=== PATIENT | female | born 1985 | race African-American/Black ===

== ENCOUNTER 2018-04-20 08:51 | Outpatient (CLI) | payer OTHER, MEDICAID ==
[~2018-04-20 08:51] MED LIST: FERRIC CARBOXYMALTOSE 750 MG in NORMAL SALINE 250 ML IV PRN; NORMAL SALINE 250 ML IV PRN
[2018-04-20 10:20] VITALS: BP 130/79
== END 2018-04-20 10:25 | disposition home or self-care (01) ==
LOC: II 08:51
PROVIDERS: ATTEND Internal Medicine Hematology & Oncology
PROC: 3E033GC Introduction of Other Therapeutic Substance into Peripheral Vein, Percutaneous Approach (ICD-10-PCS; principal; 2018-04-20)
DX: D50.9 Iron deficiency anemia, unspecified (principal); K90.9 Intestinal malabsorption, unspecified
CPT/HCPCS: 96365; J7050; J1439

== ENCOUNTER 2018-04-27 08:56 | Outpatient (CLI) | payer OTHER, MEDICAID ==
[~2018-04-27 08:56] MED LIST changes: +CYANOCOBALAMIN (VITAMIN B-12) INJ 1000 MCG/1 ML VIAL IM PRN
[2018-04-27 09:55] VITALS: BP 109/58
== END 2018-04-27 10:33 | disposition home or self-care (01) ==
LOC: II 08:56 → 5TH 08:58 → II 10:33
PROVIDERS: ATTEND Internal Medicine Hematology & Oncology
PROC: 3E033GC Introduction of Other Therapeutic Substance into Peripheral Vein, Percutaneous Approach (ICD-10-PCS; principal; 2018-04-27)
PROC: 3E023GC Introduction of Other Therapeutic Substance into Muscle, Percutaneous Approach (ICD-10-PCS; 2018-04-27)
DX: D50.9 Iron deficiency anemia, unspecified (principal); K90.9 Intestinal malabsorption, unspecified
CPT/HCPCS: 96367; 96372; J3420; J7050; J1439; 96374

== ENCOUNTER 2018-07-09 05:44 | Outpatient (CLI) | payer OTHER, MEDICAID ==
[2018-07-09 06:25] LABS: APPEARANCE,URINE SLIGHTLY-CLOUDY; BILIRUBIN,URINE NEGATIVE (NEGATIVE); COLOR,URINE YELLOW; GLUCOSE, URINE NEGATIVE (NEGATIVE); KETONES,URINE NEGATIVE (NEGATIVE); LEUKOCYTE ESTERASE,URINE NEGATIVE (NEGATIVE); NITRITE,URINE NEGATIVE (NEGATIVE); PROTEIN,URINE NEGATIVE (NEGATIVE); URINE SPECIFIC GRAVITY 1.011; UROBILINOGEN,URINE NEGATIVE mg/dL (<2.0)
[2018-07-09 07:10] LABS: URINE AMPHETAMINES SCREEN NEGATIVE; URINE BARBITURATES SCREEN NEGATIVE; URINE BENZODIAZEPINES SCREEN NEGATIVE; URINE COCAINE SCREEN NEGATIVE; URINE MARIJUANA (THC) SCREEN NEGATIVE; URINE METHADONE SCREEN NEGATIVE; URINE PHENCYCLIDINE SCREEN NEGATIVE
[2018-07-09] MEDS ORDERED: RINGERS SOLUTION,LACTATED 1,000 ML IV PRN (20:44)
[2018-07-09] MEDS ORDERED: MAG HYDROX/AL HYDROX/SIMETH SUSP 30 ML UDCUP PO ONE (21:00)
== END 2018-07-09 07:25 | disposition home or self-care (01) ==
LOC: LC 05:44
PROVIDERS: ATTEND Obstetrics & Gynecology
PROC: 4A1HXCZ Monitoring of Products of Conception, Cardiac Rate, External Approach (ICD-10-PCS; principal; 2018-07-09)
DX: O47.1 False labor at or after 37 completed weeks of gestation (principal); Z3A.38 38 weeks gestation of pregnancy
CPT/HCPCS: 59025; 80307; 81005

== ENCOUNTER 2018-07-09 14:34 | Inpatient (IN) | payer OTHER, MEDICAID ==
[2018-07-09 15:09] LABS: APPEARANCE,URINE CLEAR; BILIRUBIN,URINE NEGATIVE (NEGATIVE); COLOR,URINE YELLOW; GLUCOSE, URINE NEGATIVE (NEGATIVE); KETONES,URINE NEGATIVE (NEGATIVE); LEUKOCYTE ESTERASE,URINE NEGATIVE (NEGATIVE); NITRITE,URINE NEGATIVE (NEGATIVE); PROTEIN,URINE NEGATIVE (NEGATIVE); URINE SPECIFIC GRAVITY 1.009; UROBILINOGEN,URINE NEGATIVE mg/dL (<2.0)
[2018-07-09 15:25] LABS: URINE AMPHETAMINES SCREEN NEGATIVE; URINE BARBITURATES SCREEN NEGATIVE; URINE BENZODIAZEPINES SCREEN NEGATIVE; URINE COCAINE SCREEN NEGATIVE; URINE MARIJUANA (THC) SCREEN NEGATIVE; URINE METHADONE SCREEN NEGATIVE; URINE PHENCYCLIDINE SCREEN NEGATIVE
[2018-07-09] MEDS ORDERED: RINGERS SOLUTION,LACTATED 1,000 ML IV PRN ×2 (16:28→20:50)
[2018-07-09] MEDS ORDERED: RINGERS SOLUTION,LACTATED 1,000 ML IV ONE (16:28)
[2018-07-09 17:01] LABS: ABSOLUTE EOSINOPHILS # (AUTO) 0.1 10^3/uL (0.0-0.6); ABSOLUTE LYMPHOCYTES (AUTO) 2.1 10^3/uL (0.5-4.7); ABSOLUTE MONOCYTES (AUTO) 0.7 10^3/uL (0.1-1.4); ABSOLUTE NEUT (AUTO) 5.6 10^3/uL (1.7-8.2); BASOPHILS % (AUTO) 0.4 % (0-2); EOSINOPHILS % (AUTO) 1.5 % (0-6); HEMOGLOBIN 10.8 g/dL (12.0-15.5); LYMPHOCYTES % (AUTO) 24.6 % (13-45); MEAN CORPUSCULAR HEMOGLOBIN 24.7 pg (27.0-33.4); MEAN CORPUSCULAR HGB CONC 31.9 g/dL (32.0-36.0); MEAN CORPUSCULAR VOLUME 78 fl (80-97); MONOCYTES % (AUTO) 8.6 % (3-13); PLATELET COUNT 228 10^3/uL (150-450); RED BLOOD COUNT 4.39 10^6/uL (3.72-5.28); SEGMENTED NEUTROPHILS % (AUTO) 64.9 % (42-78); TOTAL CELLS COUNTED % (AUTO) 100 %; WHITE BLOOD COUNT 8.6 10^3/uL (4.0-10.5)
[2018-07-09] MEDS ORDERED: OXYTOCIN 10 UNIT/ML VIAL ONE (19:11)
[2018-07-09] MEDS ORDERED: MISOPROSTOL 0.2 MG TABLET ONE (19:11)
[2018-07-09] MEDS ORDERED: PHENYLEPHRINE HCL INJ/PF 10 MG/1 ML SDV ONE (19:11)
[2018-07-09] MEDS ORDERED: EPHEDRINE SULFATE INJ 50 MG/1 ML AMPULE ONE (19:12)
[2018-07-09] MEDS ORDERED: LIDOCAINE 1% INJ-PF (10 MG/ML) 30 ML SDV ONE (19:12)
[2018-07-09] MEDS ORDERED: FENTANYL CITRATE INJ/PF 100 MCG/2 ML AMPUL ONE (19:12)
[2018-07-09] MEDS ORDERED: OXYTOCIN/NORMAL SALINE 20 UNIT/1,000 ML RTUINJ ONE (19:12)
[2018-07-09] MEDS ORDERED: BUPIVACAINE HCL 0.5 % INJ/PF 30 ML SDV ONE (19:15)
[2018-07-09] MEDS ORDERED: FENTANYL/BUPIVACAINE/NS/PF 300 MCG/150 ML RTUINJ EPI ONE (19:42)
--- NOTE | 2018-07-09 19:50 | Admission Physical ---
Datetime Report Generated by CPN: 07/09/2018 19:50 CURRENT ADMISSION Chief Complaint: Uterine Contractions Indication for Induction: Indicated by Testing Indication for Induction- Other: several decels noted with an early appearance. decels resolved with hydration but felt prudent to admit for delivery in light of questionable status Admit Impression : Term, Intrauterine ; Induction of Labor Admit Plan: Admit to Unit; Initiate Labor Induction Protocol ALLERGIES Medication Allergies: No Medication Allergies: No Known Allergies (07/09/2018) Latex: No Latex Allergies Food Allergies: denies Environmental Allergies: denies OBSTETRICAL HISTORY EDC: 07/17/2018 00:00 : 4 Para: 2 Term: 2 : 0 SAB: 1 IAB: 0 Livin Gestational Diabetes: No Rh Sensitization: No Incompetent Cervix: No DEMI: No Infertility: No ART Treatment: Yes Uterine Anomaly: No IUGR: No Hx Previous C/S: No Macrosomia: No Hx Loss/Stillborn: No PIH: No Hx : No Placenta Previa/Abruption: No Depression/PP Depression: No PTL/PROM: No Post Hemorrhage: No Current Procedures: Ultrasound; NST Obstetrical History Comments: g1-2005-36 to 37 weeks, , male, 5lb 4oz, 12 hours labor g2-2008, sab at 9 weeks g3-2011-40+4 weeks, , female, 7lb 14 oz g4-cuurrent , anemia requiring iron infusion SEE RECORDS Alcohol: No Marijuana : No Cocaine: No Other Illicit Drugs: No Cigarettes: Never Smoker. 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 Heart Disease: No Hosp/Surgery: No Autoimmune Disorder: No Anesthetic Complications: No Kidney Disease: No Abnormal Pap Smear: No Neuro/Epilepsy: No Psychiatric Disorders: No Other Medical Diseases: Yes Hepatitis/Liver Disease: No Significant Family History: No Varicosities/Phlebitis: No Trauma/Violence : No Thyroid Dysfunction: No Medical History Comments: anemia on iron infusions, obesity, childbirth x 2, clomid during second INFECTIOUS HISTORY Gonorrhea: No Genital Herpes: No Chlamydia: No Tuberculosis: No Syphilis: No Hepatitis: No HIV/AIDS Exposure: No Rash or Viral Illness: No HPV: No PHYSICAL EXAM General: Normal HEENT: Normal Neurologic: Normal Thyroid: Normal Heart: Normal Lungs: Normal Breast: Normal Back: Normal Abdomen: Normal Genitourinary Exam: Normal Extremities: Normal DTRs: Normal Pelvic Type: Adequate Vital Signs: Reviewed; Within Normal Limits VAGINAL EXAM Dilatation: 6 Effacement: 100 Station: -1 MEMBRANES Pooling: Negative Membranes: Intact FETUS A EGA: 38.6 Monitoring: External US FHR- Baseline: 150 Variability: Moderate 6-25bpm Accelerations: 15X15 Decelerations: None FHR Category: Category I Estimated Weight (gm): 3500 Presentation: Vertex PLANS FOR LABOR AND DELIVERY Labor and Delivery: None Pain Management: Epidural Feeding Preference: Breast Benefit of Breast Feed Discussed: Yes Circumcision: N/A INFORMED CONSENT Signature: with User ID: [email or web address]
[2018-07-09] MEDS ORDERED: MAG HYDROX/AL HYDROX/SIMETH SUSP 30 ML UDCUP ONE (20:32)
[2018-07-09] MEDS ORDERED: MAG HYDROX/AL HYDROX/SIMETH SUSP 30 ML UDCUP PO ONE (22:05)
[2018-07-09] MEDS ORDERED: ZOLPIDEM TARTRATE 5 MG TABLET PO PRN (22:33)
[2018-07-09] MEDS ORDERED: DIBUCAINE 1% OINTMENT 28 GM TP PRN (22:33)
[2018-07-09] MEDS ORDERED: PROMETHAZINE HCL 25 MG TABLET PO PRN (22:33)
[2018-07-09] MEDS ORDERED: OXYTOCIN/NORMAL SALINE 20 UNIT/1,000 ML RTUINJ IV PRN (22:33)
[2018-07-09] MEDS ORDERED: NA PHOS,M-B/NA PHOS,DI-BA (ADULT) 133 ML ENEMA PR PRN (22:33)
[2018-07-09] MEDS ORDERED: DIPHENHYDRAMINE HCL 25 MG CAPSULE PO PRN (22:33)
[2018-07-09] MEDS ORDERED: BENZOCAINE/MENTHOL AEROSOL SPRAY 56 ML TOP PRN (22:33)
[2018-07-09] MEDS ORDERED: ACETAMINOPHEN WITH CODEINE #3 TABLET PO PRN ×2 (22:33)
[2018-07-09] MEDS ORDERED: GLYCERIN/WITCH HAZEL LEAF 1 EACH MED..PAD TP PRN (22:33)
[2018-07-09] MEDS ORDERED: DIPH/PERTUSS(ACELL)/TETANUS VAC/PF 0.5 ML SYR (>=10YO) IM PRN (22:33)
[2018-07-09] MEDS ORDERED: PROMETHAZINE HCL INJ 25 MG/1 ML VIAL IV PRN (22:33)
[2018-07-09] MEDS ORDERED: MAGNESIUM HYDROXIDE SUSP 30 ML UDCUP PO PRN (22:33)
[2018-07-09] MEDS ORDERED: MEASLES,MUMPS&RUBELLA VACC/PF 0.5 ML VIAL SUBCUT PRN (22:33)
[2018-07-09] MEDS ORDERED: PROMETHAZINE HCL 25 MG SUPP.RECT PR PRN (22:33)
[2018-07-09] MEDS ORDERED: ACETAMINOPHEN 325 MG TABLET PO PRN (22:33)
[2018-07-09] MEDS ORDERED: PSEUDOEPHEDRINE HCL 30 MG TABLET PO PRN (22:33)
[2018-07-10] MEDS ORDERED: ACETAMINOPHEN WITH CODEINE #3 TABLET ONE (00:50)
[2018-07-10] MEDS ORDERED: IBUPROFEN 800 MG TABLET ONE (06:26)
[2018-07-10] MEDS: IBUPROFEN 800 MG TABLET PO SCH ×2 (06:33→14:32)
[2018-07-10 07:46] LABS: HEMATOCRIT 31.4 % (36.0-47.0); MEAN CORPUSCULAR HEMOGLOBIN 24.7 pg (27.0-33.4); MEAN CORPUSCULAR HGB CONC 31.8 g/dL (32.0-36.0); MEAN CORPUSCULAR VOLUME 78 fl (80-97); PLATELET COUNT 213 10^3/uL (150-450); RED BLOOD COUNT 4.04 10^6/uL (3.72-5.28); RED CELL DISTRIBUTION WIDTH 22.2 % (11.5-14.0); WHITE BLOOD COUNT 11.8 10^3/uL (4.0-10.5)
[2018-07-10] MEDS: PRENATAL VITAMIN W DHA CAPSULE PO SCH (12:26)
[2018-07-10] MEDS: SENNOSIDES/DOCUSATE 8.6-50 MG 1 EACH TABLET PO SCH (12:26)
[2018-07-10] MEDS: DOCUSATE SODIUM 100 MG CAPSULE PO SCH ×2 (12:26→17:33)
[2018-07-10] MEDS: FAMOTIDINE 20 MG TABLET PO SCH (12:26)
[2018-07-10] MEDS: FERROUS SULFATE 325 MG TABLET PO SCH ×2 (12:26→17:33)
--- NOTE | 2018-07-10 13:03 | PDOC PROGRESS REPORT ---
Subjective-OB Progress Note for:: 07/10/18 Subjective: PP Day #1, doing well, establishing . Physical Exam (OB) Vital Signs: Intake & Output 07/09/18 07/10/18 07/11/18 06:59 06:59 06:59 Weight 100.6 kg - General General Appearance: Appears well, Alert In distress: None - Lochia Lochia Amount: Small 10-25 ml Lochia Color: Rubra/Red - Abdomen Description: Tender, Soft Hernia Present: No Fundal Description: Firm, Midline Fundal Height: u/u - u/2 - Respiratory Respiratory Status: No respiratory distress - Abdominal Distension: No distension Tenderness: Nontender - Genitourinary Genitourinary Note: voiding - Extremities Upper extremity: Normal inspection Lower extremities: Normal inspection - Neurological Cognition: Normal Orientation: AAOx4, Alert - Psychological Associated symptoms: Normal affect, Normal mood Objective-Diagnostic Laboratory: 07/10/18 07:32 07/09/18 07/09/18 07/09/18 14:48 16:45 16:45 WBC 8.6 RBC 4.39 Hgb 10.8 L Hct 34.0 L MCV 78 L MCH 24.7 L MCHC 31.9 L RDW 22.0 H Plt Count 228 Seg Neutrophils % 64.9 Lymphocytes % 24.6 Monocytes % 8.6 Eosinophils % 1.5 Basophils % 0.4 Absolute Neutrophils 5.6 Absolute Lymphocytes 2.1 Absolute Monocytes 0.7 Absolute Eosinophils 0.1 Absolute Basophils 0.0 Urine Color YELLOW Urine Appearance CLEAR Urine pH 7.0 Ur Specific [place] 1.009 Urine Protein NEGATIVE Urine Glucose (UA) NEGATIVE Urine Ketones NEGATIVE Urine Blood SMALL H Urine Nitrite NEGATIVE Ur Leukocyte Esterase NEGATIVE Blood Type O POSITIVE Antibody Screen NEGATIVE 07/10/18 07:32 WBC 11.8 H RBC 4.04 Hgb 10.0 L Hct 31.4 L MCV 78 L MCH 24.7 L MCHC 31.8 L RDW 22.2 H Plt Count 213 Seg Neutrophils % Lymphocytes % Monocytes % Eosinophils % Basophils % Absolute Neutrophils Absolute Lymphocytes Absolute Monocytes Absolute Eosinophils Absolute Basophils Urine Color Urine Appearance Urine pH Ur Specific [place] Urine Protein Urine Glucose (UA) Urine Ketones Urine Blood Urine Nitrite Ur Leukocyte Esterase Blood Type Antibody Screen Assessment and Plan(PN) - Assessment and Plan (1) Vaginal delivery Is this a current diagnosis for this admission?: Yes (2) Normal course Is this a current diagnosis for this admission?: Yes - Time Spent with Patient Time with patient: Less than 15 minutes - Disposition Anticipated Discharge: Home Within: within 48 hours
[2018-07-10] MEDS ORDERED: NORMAL SALINE 250 ML IV PRN (20:28)
[2018-07-10] MEDS ORDERED: FERRIC CARBOXYMALTOSE 750 MG in NORMAL SALINE 250 ML IV PRN (20:28)
[2018-07-11] MEDS: IBUPROFEN 800 MG TABLET PO SCH ×2 (00:27→06:12)
[2018-07-11] MEDS: FAMOTIDINE 20 MG TABLET PO SCH ×2 (00:28→09:35)
[2018-07-11 08:47] VITALS: BP 125/64
[2018-07-11] MEDS: PRENATAL VITAMIN W DHA CAPSULE PO SCH (09:34)
[2018-07-11] MEDS: DOCUSATE SODIUM 100 MG CAPSULE PO SCH (09:34)
[2018-07-11] MEDS: SENNOSIDES/DOCUSATE 8.6-50 MG 1 EACH TABLET PO SCH (09:34)
[2018-07-11] MEDS: FERROUS SULFATE 325 MG TABLET PO SCH (09:34)
--- NOTE | 2018-07-11 11:40 | PDOC DISCHARGE SUMMARY ---
Final Diagnosis Discharge Date: 07/11/18 - Final Diagnosis (1) Vaginal delivery Is this a current diagnosis for this admission?: Yes Discharge Data - Discharge Medication Prescriptions: Ibuprofen [Motrin 800 mg Tablet] 800 mg PO Q8 #60 tablet Home Medications: Fluticasone Propionate [Flonase Nasal [place] 50 Mcg/[place] 16 gm] 1 spray NASL Q12 PRN 07/09/18 Pnv No.95/Ferrous Fum/Folic AC [ Vitamins Tablet] 1 tab PO PRN PRN 07/09 Ibuprofen [Motrin 800 mg Tablet] 800 mg PO Q8 #60 tablet 07/11/18 Procedures: NST Intrapartum Procedure(s): Spontaneous Vaginal Delivery - Diagnosis Test Laboratory: Temp Pulse Resp BP Pulse Ox 97.8 F 72 18 125/64 99 07/11/18 08:35 07/11/18 08:35 07/11/18 08:35 07/11/18 08:35 07/11/18 08:35 07/09/18 07/09/18 07/10/18 14:48 16:45 07:32 RBC 4.39 4.04 Hgb 10.8 L 10.0 L Hct 34.0 L 31.4 L Urine Opiates Screen NEGATIVE - Discharge information/Instructions Discharge Activity: Balance Activity w/Rest, Pelvic Rest Discharge Diet: Regular Disposition: HOME, SELF-CARE Follow up with: [facility] in: 4, Weeks
--- NOTE | 2018-07-25 16:29 | Delivery Summary ---
Del Sum A-C Datetime Report Generated by CPN: 07/25/2018 16:29 DELIVERY PERSONNEL DELIVERY PERSONNEL: [id number] Delivery Doctor:: Charley Prajapati MD Labor and Delivery Nurse:: Kavita Thayer RN Labor and Delivery Nurse:: Lali Frod RN Lead Press Operator:: Rocio Nolan RN MATERNAL INFORMATION Delivery Anesthesia: Epidural Medications After Delivery: Pitocin Drip 20 Units/1000ml NSS Estimated Blood Loss (ml): 200 Maternal Complications: Precipitous Labor (<3hrs) LABOR SUMMARY EDC: 07/17/2018 00:00 No. Babies in Womb: 1 Attempted: No Labor Anesthesia: Epidural LABOR INFORMATION Reason for Induction: Not Applicable Onset of Labor: 07/09/2018 19:07 Complete Dilatation: 07/09/2018 21:22 Oxytocin: Augmentation Group B Beta Strep: negative MEMBRANES Membranes Rupture Method: Spontaneous Rupture of Membranes: 07/09/2018 21:25 Length of Rupture (hr): 0.97 Amniotic Fluid Color: Clear Amniotic Fluid Amount: Small Amniotic Fluid Odor: Normal STAGES OF LABOR Stage 1 hr: 2 Stage 1 min: 15 Stage 2 hr: 1 Stage 2 min: 1 Stage 3 hr: 0 Stage 3 min: 5 Total Time in Labor hr: 3 Total Time in Labor min: 21 VAGINAL DELIVERY Episiotomy: None Laceration #1: None Laceration Extension #1: N/A Laceration Repair: Not Applicable Sponge Count Correct: N/A CSECTION DELIVERY Primary Indication: N/A Secondary Indication: N/A CSection Incision: N/A BABY A INFORMATION Infant Delivery Date/Time: 07/09/2018 22:23 Method of Delivery: Vaginal Born in Route : No : N/A Forceps: N/A Vacuum Extraction: N/A Shoulder Dystocia : No PRESENTATION/POSITION BABY A Presentation: Cephalic Cephalic Presentation: Vertex Vertex Position: occipital anterior Breech Presentation: N/A PLACENTA INFORMATION BABY A Placenta Delivery Time : 07/09/2018 22:28 Placenta Method of Delivery: Spontaneous Placenta Status: Delivered SCORES BABY A Heart Rate 1 min: >100 bpm Resp Effort 1 min: Good Cry Reflex Irritability 1 min: Cough or Sneeze or Pulls Away Muscle Tone 1 min: Active Motion Color 1 min: Blue/Pale SCORE 1 MIN: 8 Heart Rate 5 min: >100 bpm Resp Effort 5 min: Good Cry Reflex Irritability 5 min: Cough or Sneeze or Pulls Away Muscle Tone 5 min: Active Motion Color 5 min: Body Dawn, Extremities Blue SCORE 5 MIN: 9 INFANT INFORMATION BABY A Gestational Age at Delivery: 38.6 Gestational Status: Early Term- 37- 38.6 Weeks Infant Outcome : Liveborn Infant Condition : Stable Sex: Female Sex: Female IDENTIFICATION BABY A Verification Date/Time: 07/09/2018 22:48 ID Band Number: [id number] Mother's Name Verified: Yes RN Verifying Infant: CPreeti Thayer, RN. F. White, CNM WEIGHT/LENGTH BABY A Infant Birthweight (gm): 3740 Infant Weight (lb): 8 Infant Weight (oz): 4 Length (in): 21.00 Length (cm): 53.34 CORD INFORMATION BABY A No. 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
== END 2018-07-11 12:50 | disposition home or self-care (01) | DRG 775 ==
LOC: LC 14:34 → LR 16:25 → 2S 07-10 11:42
PROVIDERS: ADMIT Obstetrics & Gynecology; ATTEND Obstetrics & Gynecology
PROC: 10E0XZZ Delivery of Products of Conception, External Approach (ICD-10-PCS; principal; 2018-07-09)
PROC: 4A1HXCZ Monitoring of Products of Conception, Cardiac Rate, External Approach (ICD-10-PCS; 2018-07-09)
DX: O99.02 Anemia complicating childbirth (principal); Z68.41 Body mass index [BMI] 40.0-44.9, adult; O62.3 Precipitate labor; O76 Abnormality in fetal heart rate and rhythm complicating labor and delivery; O99.214 Obesity complicating childbirth; E66.9 Obesity, unspecified; Z3A.38 38 weeks gestation of pregnancy; Z37.0 Single live birth
CPT/HCPCS: 36415; 80307; 81005; 85025; 85027; 86592; 86850; 86900; 86901; J2370; J2590; J3010; J3490

== ENCOUNTER 2018-07-28 14:12 | Outpatient (CLI) | payer OTHER, MEDICAID ==
[~2018-07-28 14:12] MED LIST changes: -CYANOCOBALAMIN (VITAMIN B-12) INJ 1000 MCG/1 ML VIAL IM PRN
[2018-07-28 15:11] VITALS: BP 127/78
== END 2018-07-28 15:30 | disposition home or self-care (01) ==
LOC: II 14:12 → 5TH 14:15 → II 15:30
PROVIDERS: ATTEND Internal Medicine Hematology & Oncology
PROC: 3E033GC Introduction of Other Therapeutic Substance into Peripheral Vein, Percutaneous Approach (ICD-10-PCS; principal; 2018-07-28)
DX: D50.9 Iron deficiency anemia, unspecified (principal); K90.9 Intestinal malabsorption, unspecified
CPT/HCPCS: 96367; J7050; J1439; 96374

== ENCOUNTER 2018-08-04 13:58 | Outpatient (CLI) | payer OTHER, MEDICAID | END 2018-08-04 14:47 | disposition home or self-care (01) | LOC: II 13:58 → 5TH 14:02 → II 14:47 | PROVIDERS: ATTEND Internal Medicine Hematology & Oncology | PROC: 3E033GC Introduction of Other Therapeutic Substance into Peripheral Vein, Percutaneous Approach (ICD-10-PCS; principal; 2018-08-04) | DX: D50.9 Iron deficiency anemia, unspecified (principal); K90.9 Intestinal malabsorption, unspecified | CPT/HCPCS: 96365; J7050; J1439; 96374 ==

== ENCOUNTER → 2020-10-07 | Outpatient (CLI) | payer OTHER ==
--- NOTE | 2020-10-07 10:59 | RADIOLOGY REPORT (SQ) ---
EXAM DESCRIPTION: CT HEAD WITHOUT IMAGES COMPLETED DATE/TIME: 10/07/2020 10:50 am REASON FOR STUDY: ONINTRACTBALE EPISODIC HEADACHE R51.9 HEADACHE, UNSPECIFIED COMPARISON: None. TECHNIQUE: Axial images acquired through the brain without intravenous contrast. Images reviewed wi th bone, brain and subdural windows. Additional sagittal and coronal reconstructions were generated. Images stored on PACS. All CT scanners at this facility use dose modulation, iterative reconstruction, and/or weight based d osing when appropriate to reduce radiation dose to as low as reasonably achievable (ALARA). [facility]: Dose Right [facility]: CareDose [facility]: Dose Right [facility]: Teradose 4D [facility]: [employer] Batteries RADIATION DOSE: CT Rad equipment meets quality standard of care and radiation dose reduction techniq ues were employed. CTDIvol: 48.8 mGy. DLP: 885 mGy-cm. mGy. LIMITATIONS: None. FINDINGS: VENTRICLES: Normal size and contour. CEREBRUM: No masses. No hemorrhage. No midline shift. No evidence for acute infarction. Normal gra y/white matter differentiation. No areas of low density in the white matter. CEREBELLUM: No masses. No hemorrhage. No alteration of density. No evidence for acute infarction. EXTRAAXIAL SPACES: No fluid collections. No masses. ORBITS AND GLOBE: No intra- or extraconal masses. Normal contour of globe without masses. CALVARIUM: No fracture. PARANASAL SINUSES: Complete opacification of the left maxillary sinus. SOFT TISSUES: No mass or hematoma. OTHER: No other significant finding. IMPRESSION: NORMAL BRAIN CT WITHOUT CONTRAST. LEFT MAXILLARY SINUS DISEASE. EVIDENCE OF ACUTE STROKE: NO. COMMENT: Quality ID # [id number]: Final reports with documentation of one or more dose reduction techniques (e.g., Automated exposure control, adjustment of the mA and/or kV according to patient size, use of iterative reconstruction technique) TECHNICAL DOCUMENTATION: JOB ID: [id number] 2010 [employer]- All Rights Reserved Reading location - IP/workstation name: [email or web address]
== END ==
LOC: RAD 10:36
PROVIDERS: ATTEND Family Medicine
DX: R51.9 Headache, unspecified (principal)
CPT/HCPCS: 70450